=== PATIENT | female | born 1940 | race Caucasian/White ===

== ENCOUNTER → 2017-04-01 | Outpatient (CLI) | payer MEDICARE ==
[~2017-04-01] MED LIST: ALPR-475 PO; ASPI-621 PO; ASPI-650 PO; NAPR-856 PO; OXYC30TA66 PO
== END | disposition home or self-care (01) ==
LOC: CFH 11:35
PROVIDERS: ATTEND Family Medicine
DX: Z12.31 Encounter for screening mammogram for malignant neoplasm of breast (principal); Z13.820 Encounter for screening for osteoporosis; M85.88 Other specified disorders of bone density and structure, other site; S72.4 Fracture of lower end of femur; X58.XXXD Exposure to other specified factors, subsequent encounter; Z85.3 Personal history of malignant neoplasm of breast
CPT/HCPCS: 77080; 77067

== ENCOUNTER → 2018-04-08 | Outpatient (CLI) | payer MEDICARE ==
[~2018-04-08] MED LIST changes: -ASPI-621 PO; +ASPI81TA45 PO
== END | disposition home or self-care (01) ==
LOC: CFH 10:41
PROVIDERS: ATTEND Family Medicine
DX: Z12.31 Encounter for screening mammogram for malignant neoplasm of breast (principal); Z85.3 Personal history of malignant neoplasm of breast
CPT/HCPCS: 77067

== ENCOUNTER → 2019-04-13 | Outpatient (CLI) | payer MEDICARE ==
[~2019-04-13] MED LIST changes: -ALPR-475 PO; +ALPR0.5T7 PO
== END | disposition home or self-care (01) ==
LOC: CFH 12:25
PROVIDERS: ATTEND Family Medicine
DX: Z12.31 Encounter for screening mammogram for malignant neoplasm of breast (principal)
CPT/HCPCS: 77067

== ENCOUNTER 2020-04-13 10:48 | Outpatient (CLI) | payer MEDICARE ==
[~2020-04-13 10:48] MED LIST changes: -ASPI-650 PO; +ASPI325T20 PO
== END 2020-04-13 23:59 | disposition home or self-care (01) ==
LOC: CFH 10:48
PROVIDERS: ATTEND Family Medicine
DX: Z12.31 Encounter for screening mammogram for malignant neoplasm of breast (principal)
CPT/HCPCS: 77067

== ENCOUNTER → 2020-06-26 | Outpatient (CLI) | payer MEDICARE | END | disposition home or self-care (01) | LOC: RAD 13:03 | PROVIDERS: ATTEND Family Medicine | DX: R05 Cough (principal); M41.84 Other forms of scoliosis, thoracic region; R60.0 Localized edema | CPT/HCPCS: 71046 ==